=== PATIENT | male | born 1980 | race African-American/Black ===

== ENCOUNTER 2017-08-30 11:20 | Emergency (ER) | payer OTHER | END 2017-08-30 12:18 | disposition home or self-care (01) | LOC: PHED 11:20 | DX: K40.90 Unilateral inguinal hernia, without obstruction or gangrene, not specified as recurrent (principal); Q60.0 Renal agenesis, unilateral; Z88.0 Allergy status to penicillin | CPT/HCPCS: 99282 ==

== ENCOUNTER → 2017-10-14 | Day surgery (SDC) | payer OTHER ==
[~2017-10-14] VITALS: Ht 175.3 cm; Wt 88.7 kg
[~2017-10-14] MED LIST: *MEPERIDINE 25 MG INJ VIAL PERIprocedural Use ONLY ONE; *PROMETHAZINE 25 MG/ML VIAL PERIprocedural use ONLY ONE; *RESP: ALBUTEROL 2.5 MG/3 ML NEB (PRN) PERIprocedural Use ONLY NEB ONE; *morphine SULFATE 4 MG/ML PERIprocedure ONLY ONE; ACETAMINOPHEN 1000 MG/100 ML 100 ML IV SCH; ACETAMINOPHEN/HYDROcodone 325 MG/5 MG TAB ONE; BUPIVACAINE/EPINEPHRINE 0.25% PF 30 ML VIAL INFIL ONE; CHLORHEXIDINE GLUCONATE 2 % 1 PACK (2 CLOTHS) TOPICAL PRN; DEXAMETHASONE SOD PHOS 4 MG/ML VIAL IV ONE; DO NOT ADM ANY ANTICOAGULANT DRUGS PRN; FEXO1TAB97 PO; FUROSEMIDE 20 MG/2 ML VIAL IV PUSH ONE; FUROSEMIDE 20 MG/2 ML VIAL ONE; GLYCOPYRROLATE 1 MG/5 ML SYRINGE IV PUSH ONE; HYDR-3288 PO; KETOROLAC TROMETHAMINE 30 MG/ML (IVP) VIAL IV PUSH ONE; KETOROLAC TROMETHAMINE 30 MG/ML (IVP) VIAL ONE; LACTATED RINGER'S 1000 ML IV PRN; LIDOCAINE HCL 1% PF 10 ML VIAL ONE; LIDOCAINE HCL 1% PF 5 ML SYRINGE OTHER ONE; METOPROLOL TARTRATE 25 MG TAB PO PRN; MIDAZOLAM HCL 2 MG/2 ML VIAL ONE; NAPR500T2 PO; NEOSTIGMINE 5 MG/5 ML SYRINGE IV PUSH ONE; ONDANSETRON HCL 4 MG/2 ML VIAL IV ONE; ONDANSETRON ODT 4 MG TAB ONE; ONDANSETRON ODT 4 MG TAB PO ONE; POVIDONE IODINE 5% (ANTISEPSIS KIT) 4 APPLICATIONS EACH NARE PRN; PROPOFOL 200 MG/20 ML AMP IV ONE; ROCURONIUM INJ 50 MG/5 ML SYRINGE IV PUSH ONE; SODIUM CHLORID 0.9% 500 ML INJ 500 ML IV SCH; SODIUM CHLORID 0.9% 500 ML IV PRN; VANCOMYCIN 1000 MG/NS 250 ML ON-CALL IV SCH; [UNRECOGNIZED DRUG - OTHER]
[2017-10-14 08:45] LABS: AUTOMATED NEUTROPHIL # 2.5 TH/MM3 (1.8-7.7); BASOPHIL % 0.8 % (0.0-2.0); EOSINOPHIL # 0.1 TH/MM3 (0-0.4); EOSINOPHIL % 1.9 % (0.0-4.0); HEMATOCRIT 45.4 % (39.0-51.0); HEMOGLOBIN 15.1 GM/DL (13.0-17.0); LYMPH % 34.5 % (9.0-44.0); LYMPHOCYTE # 1.6 TH/MM3 (1.0-4.8); MEAN CELL VOLUME 91.1 FL (80.0-100.0); MEAN CORPUSCULAR HEMOGLOBIN 30.3 PG (27.0-34.0); MEAN CORPUSCULAR HGB CONC 33.3 % (32.0-36.0); MEAN PLATELET VOLUME 7.9 FL (7.0-11.0); MONOCYTE # 0.4 TH/MM3 (0-0.9); NEUT % 53.8 % (16.0-70.0); PLATELET COUNT 226 TH/MM3 (150-450); RED BLOOD COUNT 4.98 MIL/MM3 (4.50-5.90); RED CELL DISTRIBUTION WIDTH 13.6 % (11.6-17.2); WHITE BLOOD COUNT 4.6 TH/MM3 (4.0-11.0)
[2017-10-14 09:13] LABS: CALCIUM 9.3 MG/DL (8.5-10.1); CREATININE 1.33 MG/DL (0.60-1.30)
[2017-10-14 09:14] LABS: BICARBONATE 29.3 MEQ/L (21.0-32.0)
--- NOTE | 2017-10-14 14:21 | HHI.PR ---
cc: Jon Santana MD Immediate Post Op Note Procedure Date: Oct 14, 2017 Pre Op Diagnosis: Symptomatic reducible right inguinal hernia Post Op Diagnosis: Same, direct Surgeon: Jon Santana [employer] Director(s): Marilin Davies CFA Procedure: Laparoscopic RIGHT inguinal hernia repair with mesh Findings: Small right inguinal hernia Complications: None Specimen(s) removed: None Estimated blood loss: 10 ml Anesthesia: General Drains: None IVF (800 ml) Patient to: PACU Patient Condition: Good Date/Time of Procedure: SEE SURGICAL CARE RECORD Jon Santana MD Oct 14, 2017 14:20
--- NOTE | 2017-10-14 15:06 | RADRPT ---
EXAM DATE: 10/14/2017 2:47 PM EDT AGE/SEX: 37 years / Male INDICATIONS: Cough. CLINICAL DATA: This is the patient's initial encounter. Patient reports that signs and symptoms have been present for 1 day and indicates a pain score of 2/10. MEDICAL/SURGICAL HISTORY: None. None. COMPARISON: No prior exams available for comparison. FINDINGS: The heart size is normal. There is increased density in the upper lungs bilaterally. The bases are gr ossly clear. CONCLUSION: Biapical areas of consolidation or atelectasis. Electronically signed by: Rashi Newman MD 10/14/2017 3:05 PM EDT
[2017-10-14 18:10] VITALS: BP 98/70
[2017-10-14 18:35] VITALS: PULSE 81; O2SAT 97
--- NOTE | 2017-10-15 02:05 | MP ---
cc: Jon Santana MD DATE OF OPERATION: 10/14/2017 PROCEDURE: Laparoscopic right inguinal hernia repair with mesh. PREOPERATIVE DIAGNOSIS: Symptomatic right inguinal hernia, reducible. POSTOPERATIVE DIAGNOSIS: Symptomatic right inguinal hernia, reducible, direct. ANESTHESIA: General endotracheal. SURGEON: Jon Santana MD ESTIMATED BLOOD LOSS: 10 mL. FLUIDS: 800 mL crystalloid. COMPLICATIONS: None. DRAINS: None. SPECIMENS: None. PROCEDURE IN DETAIL: The patient was taken to the operating room after the right groin was marked by the undersigned and confirmed by the patient. He was placed on the operating table in the supine position. After an adequate level of general endotracheal anesthesia was achieved, the abdomen was shaved, prepped and draped. Timeout was taken, confirming the correct patient, site, and procedure to be performed. An incision was made in the umbilicus and carried through the fascia sharply. The peritoneal cavity was directly visualized. A 12 mm balloon trocar was inserted and the balloon inflated. A 10 mm 30-degree laparoscope was inserted. The patient was placed in Trendelenburg position. A 12 mm trocar was placed in the right lower quadrant and entered the abdominal cavity under direct vision uneventfully. A 5 mm trocar was placed in the left lower quadrant and entered the abdominal cavity under direct vision uneventfully as well. The peritoneum in the right groin was then incised and peeled downward. The underlying tissue was swept free from the peritoneum. Dakota's ligament was exposed with gentle blunt dissection and minimal use of electrocautery. A window was created behind the spermatic cord structures. The patient was noted to have a direct hernia defect, and loose fatty tissue was dissected from around this, back to fascia. When this had been completed, a 6 x 6 inch piece of Ultrapro mesh was cut in half and then one of the pieces was selected and rounded at the corners. The mesh was then split longitudinally and placed into the pelvis. The inferior leaf of mesh was brought under the spermatic cord structures. The mesh was transfixed to Dakota's ligament with 4.0 mm shweta. The mesh was fixed to the transversalis fascia with 4.8 mm shweta. The mesh was reapproximated laterally with two 4.8 mm shweta and medially with one 4.8 mm staple to close down the internal ring to minimize the risk of hernia recurrence. When this was completed, the surgeon's finger was inserted into the defect and was seen to completely surround the defect by at least 4-5 cm on all sides. At this point, with hemostasis assured, insufflation was decreased and the peritoneum was reapproximated with 4.8 mm shweta. Insufflation was then discontinued and the left and right lower quadrant trocars were removed under direct vision. No bleeding was noted from the trocar sites. The laparoscope and umbilical port were then removed. The fascia was closed in the right lower quadrant fascia site with 0 Vicryl suture in a [id number] fashion and in the umbilicus in a similar fashion. The skin was closed at all 3 trocar sites with 4-0 Vicryl in an interrupted buried fashion. The wounds were dressed with Steri-Strips. The patient was extubated and had a momentary laryngospasm. This was overcome and the patient was taken back to the recovery room in stable condition. Sponge and needle counts were reported to be correct. The patient tolerated the procedure well. MD GAMA Abraham/JORDAN , 08:21 PM , 02:03 AM
== END | disposition home or self-care (01) ==
LOC: HSDC 07:51
PROVIDERS: ATTEND Surgery Trauma Surgery
DX: K40.90 Unilateral inguinal hernia, without obstruction or gangrene, not specified as recurrent (principal)
CPT/HCPCS: 00840; 49650; 71045; 80048; 85025; 94664; C1781; J1100; J1885; J1940; J2175; J2250; J2270; J2405; J2550; J2710; J3010; J3370; J7050; J7120; J7613